=== PATIENT | male | born 1990 | race African-American/Black ===

== ENCOUNTER 2022-10-20 12:57 | Emergency (ER) | payer OTHER ==
[~2022-10-20] VITALS: Ht 180.3 cm; Wt 64.4 kg
[2022-10-20 13:42] LABS: MEAN CORPUSCULAR HEMOGLOBIN 29.7 uug (23.8-33.4); MEAN CORPUSCULAR VOLUME 88.9 fL (73.0-96.2); PLATELET COUNT (AUTO) 368 K/uL (152-348)
[2022-10-20 13:44] LABS: *BILIRUBIN,URIN NEGATIVE (NEGATIVE); *BLOOD, URINE NEGATIVE (NEGATIVE); *CLARITY,URINE CLEAR (CLEAR); *COLOR,URINE YELLOW (YELLOW); *KETONES,URINE NEGATIVE (NEGATIVE); *UROBILINOGEN,URINE 0.2 E.U./dl (NORMAL); LEUKOCYTE ESTERASE ,URINE NEGATIVE (NEGATIVE); NITRITE, URINE NEGATIVE (NEGATIVE); UGLUCOSE NEGATIVE (NEGATIVE)
[2022-10-20 13:48] LABS: CARBON DIOXIDE 34 mmol/L (21-32); CHLORIDE 102 mmol/L (98-107); CREATININE 1.1 mg/dL (0.6-1.3); GLUCOSE 92 mg/dL (74-106); POTASSIUM 4.6 mmol/L (3.5-5.1); UREA NITROGEN, BLOOD 15 mg/dL (7-18)
[2022-10-20 13:55] LABS: ALANINE AMINOTRANSFERASE 38 U/L (16-63); ALKALINE PHOSPHATASE 73 U/L (50-136); ASPARTATE AMINOTRANSFERASE 16 U/L (15-37); BILIRUBIN,DIRECT 0.1 mg/dL (0.0-0.2); BILIRUBIN,TOTAL 0.2 mg/dL (0.2-1.0); TOTAL PROTEIN, SERUM 7.6 g/dL (6.4-8.2)
[2022-10-20 14:00] LABS: *AMPHETAMINE, URINE NEGATIVE (NEGATIVE); *CANNABINOID, URINE NEGATIVE (NEGATIVE); *COCCAINE, URINE NEGATIVE (NEGATIVE); *OPIATE, URINE NEGATIVE (NEGATIVE); *PHENCYCLIDINE SCREEN,URINE NEGATIVE (NEGATIVE); ETHANOL < 3 MG/DL (0-0)
[2022-10-20 14:07] LABS: ACETAMINOPHEN < 2.0 ug/mL (10-30)
[2022-10-20] MEDS ORDERED: PANTOPRAZOLE SODIUM 40 MG VIAL ONE (14:13)
[2022-10-20] MEDS ORDERED: METOCLOPRAMIDE HCL 10 MG/2 ML VIAL ONE (14:13)
--- NOTE | 2022-10-20 15:18 | NUR ---
Social work consult was requested for a patient in the emergency room for homeless and substance abuse resources. Patient is 32-year-old male, and he is alert and oriented X4. Patient presents with depressed mood and congruent affect. Patient states he does not have a primary contact. Patient states he has been homeless for two years and MARJORIE provided the patient with resources for [facility] [address] [place] [address] ([phone]) and [facility] [address] [place] [address] ([phone]). MARJORIE gave resources for [address] [address]. Homeless waiver was signed and given to the patient and a copy was placed in the chart. Patient denies a history of substance abuse and the toxicology is negative. Patient states he has a history of schizophrenia and is not taking any medications. Patient states he is hearing voices. MARJORIE provided the patient with mental health resource for [facility] [address] [place] [address] ([phone]). Patient states he is having suicidal ideation and denies homicidal ideation. Patient states he is open to going to [facility] and MARJORIE contacted [facility] ([phone]) and faxed him the patients face sheet (fax: [phone]) and sent the clinical information to [facility] (fax: [phone]). MARJORIE will continue to follow up.
[2022-10-20] MEDS ORDERED: ACETAMINOPHEN ES 500 MG TABLET PO ONE (15:45)
[2022-10-20] MEDS ORDERED: ACETAMINOPHEN ES 500 MG TABLET ONE (15:54)
--- NOTE | 2022-10-20 17:20 | NUR ---
Patient reported to the ER with complaints of depression and suicide ideation. Patient seen by physician. Referral sent by social science instructor to [facility] ([phone], Ext [phone]): patient accepted for treament. Report given to Alona at accepting facility. Accept psychiatrist - Dr. Escalante. Following [place] - Dr. Nesbitt. Patient scheduled for grape picker with [facility] at 1900.
== END 2022-10-20 19:44 ==
LOC: ER 12:57
DX: R45.851 Suicidal ideations (principal); F20.9 Schizophrenia, unspecified; F32.A Depression, unspecified; Z20.822 Contact with and (suspected) exposure to COVID-19
CPT/HCPCS: 80076; 80048; 81003; 85025; 87426; 36415; 99285; 80299; 80320; 80307; J7040; A4663; A9150; C9113; G0480; J2765